=== PATIENT | female | born 1950 ===

== ENCOUNTER 2017-09-01 09:46 | Emergency (ER) | payer MEDICARE, OTHER ==
[2017-09-01 09:53] VITALS: PULSE 68; TEMP 98.2
--- NOTE | 2017-09-01 10:43 | ED PDOC ---
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 The patient states that she usually had very good awareness of her house but somehow missed the bathroom and went down the basement stairs where she fell forward. She states that there was no dizziness or chest pain prior to the fall but after she did feel a bit lightheaded. PMD: Neal Kay Past Medical History Reviewed: Historical Data, Nursing Documentation, Vital Signs Vital Signs: Last Vital Signs Temp 98.2 F 09/01/17 09:50 Pulse 68 09/01/17 09:50 Resp 18 09/01/17 09:50 BP 129/77 09/01/17 09:50 Pulse Ox 96 09/01/17 10:50 - Medical History PMH: Asthma, HTN Other PMH: Congenital Glaucoma - Surgical History Other surgeries: Glaucoma Surgery (as early as 4 months of age), DNC - Family History Family History: States: Unknown Family Hx - Social History Current smoker - smoking cessation education provided: No Ex-Smoker (has not smoked in the last 12 months): No Alcohol: None Drugs: Denies - Home Medications Home Medications: Ambulatory Orders Medication Instructions Recorded Amoxicillin 500 mg PO TID #30 tablet 09/01/17 - Allergies Allergies/Adverse Reactions: Allergies Allergy/AdvReac Type Severity Reaction Status Date / Time No Known Allergies Allergy Verified 09/01/17 09:50 Review of Systems ROS Statement: Except As Marked, All Systems Reviewed And Found Negative ENT: Positive for: Other (swelling to the nose.) Cardiovascular: Negative for: Chest Pain Respiratory: Negative for: Shortness of Breath Musculoskeletal: Positive for: Neck Pain (mild neck pain). Negative for: Back Pain Neurological: Positive for: Headache (mild headache with swelling to the forehead.) Physical Exam - Reviewed Nursing Documentation Reviewed: Yes Vital Signs Reviewed: Yes - Physical Exam Appears: Positive for: Non-toxic, No Acute Distress Head Exam: Positive for: NORMOCEPHALIC. Negative for: ATRAUMATIC, NORMAL INSPECTION (Swelling in frontal scalp about 3cm by 4cm circular no palpable depression of bone.) Skin: Positive for: Normal Color, Warm, Dry. Negative for: Rash Eye Exam: Positive for: EOMI, PERRL. Negative for: Normal appearance (Both corneas are opaque), Nystagmus ENT: Positive for: Other (no discharge from ear and nose.). Negative for: Normal ENT Inspection (superficial abrasion, no bleeding swelling to nasal septum but there is mild ecchymosis) Neck: Positive for: Painless ROM, Supple. Negative for: Normal (Mild Para spinal cervical spine tenderness no point tenderness on bone.) Cardiovascular/Chest: Positive for: Regular Rate, Rhythm, Chest Non Tender. Negative for: Tachycardia Respiratory: Positive for: Normal Breath Sounds. Negative for: Rales, Rhonchi, Wheezing, Respiratory Distress Gastrointestinal/Abdominal: Positive for: Normal Exam, Bowel Sounds, Soft. Negative for: Tenderness, Guarding, Rebound Back: Positive for: Normal Inspection. Negative for: L CVA Tenderness, R CVA Tenderness, Vertebral Tenderness Extremity: Positive for: Normal ROM (Moving all 4 extremities motor strength 5/5 ). Negative for: Pedal Edema, Calf Tenderness, Deformity, Swelling Neurologic/Psych: Positive for: Alert, Oriented, Gait - Laboratory Results Result Diagrams: 09/01/17 11:00 09/01/17 11:00 - ECG O2 Sat by Pulse Oximetry: 96 (RA) Pulse Ox Interpretation: Normal Medical Decision Making Medical Decision Makin Initial Impression Head injury rule out intracranial hemorrhage Initial Plan: * CT head w/o Contrast * CT orbits/facials w/o Contrast * BMP * CBC * Reevaluation Scribe Attestation Documented by Yusra Zimmer acting as a scribe for Pebbles Crawford MD. Provider Attestation All medical record entries made by the Scribe were at my direction and personally dictated by me. I have reviewed the chart and agree that the record accurately reflects my personal performance of the history, physical exam, medical decision making, and the department course for this patient. I have also personally directed, reviewed, and agree with the discharge instructions and disposition. Disposition - Clinical Impression Clinical Impression: Nasal bones, closed fracture - Patient ED Disposition Is Patient to be Admitted: No Doctor Will See Patient In The: Office Counseled Patient/Family Regarding: Diagnosis, Need For Followup - Disposition Referrals: Diego Dale MD [Staff Provider] - [employer] Anastacio Farrell [Outside] Disposition: Routine/Home Disposition Time: 12:36 Condition: STABLE Prescriptions: Amoxicillin 500 mg PO TID #30 tablet Instructions: Nasal Fracture (ED) Forms: [facility] [employer] (American) - POA Present On Arrival: Falls Or Trauma
[2017-09-01 11:07] LABS: BASO % 0.4 % (0.0-2.0); EOS # 0.2 K/uL (0.0-0.7); EOS % 1.7 % (0.0-4.0); LYMPH # 1.3 K/uL (1.0-4.3); LYMPH % 11.5 % (20.0-40.0); MEAN CELL VOLUME 90.6 fl (81.0-99.0); MEAN CORPUSCULAR HEMOGLOBIN 29.7 pg (27.0-31.0); MEAN CORPUSCULAR HGB CONC 32.8 g/dL (33.0-37.0); MEAN PLATELET VOLUME 8.2 fl (7.2-11.7); MONO # 0.9 K/uL (0.0-0.8); MONO % 8.1 % (0.0-10.0); NEUT # 9.1 K/uL (1.8-7.0); NEUT % 78.3 % (50.0-75.0); RED CELL DISTRIBUTION WIDTH 13.4 % (11.5-14.5); WHITE BLOOD COUNT 11.6 K/uL (4.8-10.8)
[2017-09-01 11:16] LABS: BLOOD UREA NITROGEN 14 mg/dl (7-17); CALCIUM 9.6 mg/dL (8.4-10.2); CARBON DIOXIDE 26 mmol/L (22-30); CHLORIDE 105 mmol/L (98-107); GFR AFRICAN-AMERICAN > 60; GLUCOSE,RANDOM 110 mg/dL (65-105); SODIUM 144 mmol/l (132-148)
--- NOTE | 2017-09-01 12:22 | CT ---
PROCEDURE: CT HEAD WITHOUT CONTRAST. HISTORY: fall down steps COMPARISON: None available. TECHNIQUE: Axial computed tomography images were obtained through the head/brain without intravenous contrast. Radiation dose: Total exam DLP = 851.81 mGy-cm. This CT exam was performed using one or more of the following dose reduction techniques: Automated exposure control, adjustment of the mA and/or kV according to patient size, and/or use of iterative reconstruction technique. FINDINGS: HEMORRHAGE: No intracranial hemorrhage. BRAIN: No mass effect or edema. The jon-white matter differentiation appears intact. Please note that MRI with diffusion imaging is more sensitive in the detection of acute ischemic event. VENTRICLES: No hydrocephalus. CALVARIUM: Unremarkable. PARANASAL SINUSES: Unremarkable as visualized. No significant inflammatory changes. MASTOID AIR CELLS: Unremarkable as visualized. No inflammatory changes. OTHER FINDINGS: Small frontal soft tissue hematoma. Calcification noted along the posterior left globe. IMPRESSION: No acute intracranial pathology identified. Small frontal scalp soft tissue hematoma.
--- NOTE | 2017-09-01 12:33 | CT ---
CT orbits without IV contrast Indication: Fall down steps, congenital glaucoma Comparison: Noncontrast head CT performed the same day Technique: Axial computed tomography images were obtained of the orbits without the use of intravenous contrast. Coronal and sagittal reformatted images were generated and reviewed. This CT exam was performed using 1 or more of the falling dose reduction techniques: Automated exposure control, adjustment of the MAA and/or kV according to patient size, and/or use of iterative reconstruction technique. Radiation dose: Total exam DLP = 770.63 mGy-cm. Findings: Streak artifact from dental hardware. Bilateral displaced nasal bone fracture deformities with associated soft tissue swelling. Frontal scalp hematoma. The remainder of the facial bones appear u intact without acute fracture. The orbits appear unremarkable except for calcification along the posterior left lobe. The temporomandibular joints are located. The mastoid air cells appear clear. The paranasal sinuses appear clear without air-fluid levels. The visualized brain appears unremarkable. Degenerative changes of the included portions upper cervical spine. Impression: Bilateral displaced nasal bone fracture deformities with associated soft tissue swelling. Frontal scalp hematoma.
[2017-09-01 13:19] VITALS: BP 123/67; RESP 17; O2SAT 99
== END 2017-09-01 13:00 | disposition home or self-care (01) ==
LOC: H.ER 09:46
DX: S02.2XXA Fracture of nasal bones, initial encounter for closed fracture (principal); W10.8XXA Fall (on) (from) other stairs and steps, initial encounter; Y92.89 Other specified places as the place of occurrence of the external cause